=== PATIENT | male | born 1935 | race Hispanic/Latino ===

== ENCOUNTER 2017-04-23 13:08 | Emergency (ER) | payer MEDICARE ==
[2017-04-23 13:09] VITALS: BMI 22.7
[2017-04-23 13:17] VITALS: RESP 18; O2SAT 96
--- NOTE | 2017-04-23 14:07 | C.PDOC ---
History Of Present Illness 82-YEAR-OLD MALE, PRESENTS TO THE EMERGENCY DEPARTMENT WITH COMPLAINTS OF NEW ONSET RECTAL BLEED THAT STARTED YEST. NO RECUR SX TODAY. NO ABD OR RECTAL PAIN, NV, DIZZY. CURRENTLY ASYMPT EXAM NEG Time Seen by Provider: 04/23/17 13:41 Chief Complaint (Nursing): GI Problem History Per: Patient History/Exam Limitations: no limitations Current Symptoms Are (Timing): Better Number Of Bleeding Episodes: One Past Medical History Reviewed: Historical Data, Nursing Documentation, Vital Signs Vital Signs: Last Vital Signs Temp 99.2 F 04/23/17 13:13 Pulse 73 04/23/17 13:13 Resp 18 04/23/17 13:13 BP 147/92 H 04/23/17 13:13 Pulse Ox 96 04/23/17 14:53 - Medical History PMH: Benign Prostatic Hyperplasia, Hypercholesterolemia - [facility] Procedures COLONOSCOPY (09/30/12) ESOPHAGOGASTRODUODENOSCOPY [EGD] W/CLOSED BIOPSY (05/11/02) Family History: States: No Known Family Hx - Social History Hx Alcohol Use: No Hx Substance Use: No Review Of Systems Except As Marked, All Systems Reviewed And Found Negative. Constitutional: Negative for: Fever, Chills Cardiovascular: Negative for: Chest Pain, Palpitations Respiratory: Negative for: Shortness of Breath Gastrointestinal: Positive for: Hematochezia. Negative for: Nausea, Vomiting, Abdominal Pain Neurological: Negative for: Weakness, Numbness, Headache, Dizziness Physical Exam - Physical Exam Appears: Non-toxic, No Acute Distress Skin: Warm, Dry, No Rash Head: Atraumatic, Normacephalic Eye(s): bilateral: Normal Inspection, PERRL, EOMI Nose: Normal Oral Mucosa: Moist Lips: Normal Appearing Neck: Normal ROM Cardiovascular: Rhythm Regular, No Murmur Respiratory: Normal Breath Sounds, No Accessory Muscle Use Gastrointestinal/Abdominal: Soft, No Tenderness Back: Normal Inspection Extremity: Normal ROM Neurological/Psych: Oriented x3, Normal Speech ED Course And Treatment - Laboratory Results Result Diagrams: 04/23/17 14:34 04/23/17 14:34 ECG: Interpreted By Me ECG Rhythm: Sinus Rhythm ECG Interpretation: Normal Rate From EC O2 Sat by Pulse Oximetry: 96 (ON ra) Pulse Ox Interpretation: Normal Reevaluation Time: 16:14 Reassessment Condition: Improved (NO RECUR GI BLEED SINCE INITIAL EVAL. H/H WNL APPEARS COMFORTABLE.) Disposition Counseled Patient/Family Regarding: Studies Performed, Diagnosis, Need For Followup - Disposition Referrals: YOUR,PMD [Other] Disposition: HOME/ ROUTINE Disposition Time: 16:16 Condition: GOOD Additional Instructions: YOUR TESTS ARE NORMAL. RETURN IF WORSENING SYMPTOMS, FOLLOW UP WITH YOUR PMD. Instructions: Rectal Bleeding (ED) Forms: [facility] (Portuguese), General Discharge Instructions - Clinical Impression Clinical Impression: Rectal bleed - Scribe Statement The provider has reviewed the documentation as recorded by the Scribe (Jazmin Lara) All medical record entries made by the Scribe were at my direction and personally dictated by me. I have reviewed the chart and agree that the record accurately reflects my personal performance of the history, physical exam, medical decision making, and the department course for this patient. I have also personally directed, reviewed, and agree with the discharge instructions and disposition.
[2017-04-23 14:38] LABS: BASO % 0.6 % (0.0-2.0); EOS % 0.3 % (0.0-4.0); HEMOGLOBIN 14.3 g/dL (12.0-18.0); LYMPH # 1.9 K/uL (1.0-4.3); LYMPH % 29.1 % (20.0-40.0); MEAN CELL VOLUME 94.1 fL (80.0-94.0); MEAN CORPUSCULAR HEMOGLOBIN 32.5 pg (27.0-31.0); MEAN CORPUSCULAR HGB CONC 34.6 g/dL (33.0-37.0); MEAN PLATELET VOLUME 8.2 fL (7.2-11.7); MONO # 1.8 K/uL (0.0-0.8); MONO % 27.7 % (0.0-10.0); NEUT # 2.8 K/uL (1.8-7.0); NEUT % 42.3 % (50.0-75.0); PLATELET COUNT 168 K/uL (130-400); RBC 4.39 Mil/uL (4.40-5.90); RED CELL DISTRIBUTION WIDTH 12.9 % (11.5-14.5); WHITE BLOOD COUNT 6.6 K/uL (4.8-10.8)
[2017-04-23 14:54] LABS: INR 1.2; PROTHROMBIN TIME 13.9 SECONDS (9.7-12.2)
[2017-04-23 15:10] LABS: ALB/GLOB RATIO 1.2 (1.0-2.1); ALBUMIN 3.8 g/dL (3.5-5.0); ALT/SGPT 30 U/L (21-72); AST/SGOT 43 U/L (17-59); BLOOD UREA NITROGEN 13 mg/dL (9-20); CALCIUM 8.6 mg/dl (8.6-10.4); GFR AFRICAN-AMERICAN > 60; GFR NON-AFRICAN AMERICAN > 60
[2017-04-23 15:16] LABS: ANISOCYTOSIS SLIGHT; BANDS 3 % (0-2); LARGE PLATELETS PRESENT; LYMPHOCYTE 21 % (20-40); MONOCYTE 28 % (0-10); NEUTROPHIL 45 % (50-75); PLATELET ESTIMATE NORMAL (NORMAL); REACTIVE LYMPHOCYTES 3 % (0-0); TOTAL CELLS COUNTED 100
[2017-04-23 17:02] VITALS: BP 146/74; PULSE 72; TEMP 98.8
== END 2017-04-23 17:01 | disposition home or self-care (01) ==
LOC: C.ER 13:08
DX: K62.5 Hemorrhage of anus and rectum (principal)
CPT/HCPCS: 80053; 85025; 85610; 85730; 99284; G0328

== ENCOUNTER 2018-06-21 15:52 | Emergency (ER) | payer MEDICARE ==
[2018-06-21 15:52] VITALS: BMI 22.7
[2018-06-21 16:54] LABS: BASO % 0.3 % (0.0-2.0); EOS % 0.3 % (0.0-4.0); HEMOGLOBIN 15.3 g/dL (12.0-18.0); LYMPH % 35.3 % (20.0-40.0); MEAN CORPUSCULAR HEMOGLOBIN 32.4 pg (27.0-31.0); MEAN CORPUSCULAR HGB CONC 33.5 g/dL (33.0-37.0); MEAN PLATELET VOLUME 8.1 fL (7.2-11.7); MONO # 1.1 K/uL (0.0-0.8); MONO % 10.1 % (0.0-10.0); NEUT # 6.1 K/uL (1.8-7.0); NRBC % 0.1 % (0.0-2.0); RBC 4.73 Mil/uL (4.40-5.90); RED CELL DISTRIBUTION WIDTH 12.9 % (11.5-14.5)
[2018-06-21 17:02] LABS: MEAN CELL VOLUME 96.8 fL (80.0-94.0); WHITE BLOOD COUNT 11.3 K/uL (4.8-10.8)
[2018-06-21 17:08] LABS: URINE BACTERIA RARE (<OCC); URINE BILIRUBIN NEGATIVE (NEGATIVE); URINE BLOOD 2+ (NEGATIVE); URINE CLARITY Clear (Clear); URINE COLOR Yellow (YELLOW); URINE GLUCOSE (UA) NORMAL (Normal); URINE LEUKOCYTE ESTERASE NEG Leu/uL (Negative); URINE PROTEIN NEGATIVE (NEGATIVE); URINE UROBILINOGEN NORMAL mg/dL (0.2-1.0)
[2018-06-21 17:10] LABS: ALB/GLOB RATIO 1.5 (1.0-2.1); ALBUMIN 4.6 g/dL (3.5-5.0); ALT/SGPT 29 U/L (21-72); AST/SGOT 74 U/L (17-59); BLOOD UREA NITROGEN 11 mg/dL (9-20); CALCIUM 9.6 mg/dl (8.6-10.4); GFR NON-AFRICAN AMERICAN > 60
[2018-06-21] MEDS ORDERED: Sodium Chloride 0.9% 1,000 ML IV SCH (18:15)
[2018-06-21] MEDS ORDERED: Sodium Chloride 0.9% 1,000 ML ONE (18:20)
[2018-06-21] MEDS ORDERED: Iodixanol 320 MG/ML 100 ML BOTTLE IV ONE (18:42)
--- NOTE | 2018-06-21 18:48 | C.PDOC ---
History Of Present Illness 83 year old male presents to ED with complaint of vomiting and abdominal pain for the past 2-3 weeks. Patient states that he is not able to eat and that he has decreased appetite. He states that his last bowel movement was 2-3 days ago. Patient takes medication for his BPH and hyperlipidemia. Patient declined pain medication. She denies fever, chills, urinary symptoms, chest pain, SOB, dizziness, cough, and nausea. Time Seen by Provider: 06/21/18 17:48 Chief Complaint (Nursing): Abdominal Pain History Per: Patient History/Exam Limitations: no limitations Onset/Duration Of Symptoms: Other (2-3 weeks) Current Symptoms Are (Timing): Still Present Location Of Pain/Discomfort: RLQ, LLQ Radiation Of Pain To:: None Quality Of Discomfort: "Pain" Associated Symptoms: Vomiting, Loss Of Appetite. denies: Fever, Chills, Nausea, Urinary Symptoms Exacerbating Factors: None Alleviating Factors: None Last Bowel Movement: Days Ago (2-3) Past Medical History Reviewed: Historical Data, Nursing Documentation, Vital Signs Vital Signs: Last Vital Signs Temp 98.7 F 06/21/18 16:09 Pulse 69 06/21/18 16:09 Resp 20 06/21/18 16:09 BP 153/69 H 06/21/18 16:09 Pulse Ox 94 L 06/21/18 16:09 - Medical History PMH: Benign Prostatic Hyperplasia, Hypercholesterolemia Surgical History: No Surg Hx - [facility] Procedures COLONOSCOPY (09/30/12) ESOPHAGOGASTRODUODENOSCOPY [EGD] W/CLOSED BIOPSY (05/11/02) Family History: States: Unknown Family Hx - Social History Hx Alcohol Use: No Hx Substance Use: No Review Of Systems Constitutional: Negative for: Fever, Chills, Sweats, Weakness Cardiovascular: Negative for: Chest Pain Respiratory: Negative for: Cough, Shortness of Breath Gastrointestinal: Positive for: Vomiting, Abdominal Pain (lower abdomen). Negative for: Nausea, Constipation Genitourinary: Negative for: Dysuria, Frequency, Hematuria Neurological: Negative for: Weakness, Numbness, Dizziness Physical Exam - Physical Exam Appears: Well, Non-toxic, No Acute Distress Skin: Normal Color, Warm, Dry Head: Atraumatic, Normacephalic Eye(s): bilateral: Normal Inspection, PERRL, EOMI Oral Mucosa: Moist Neck: Normal ROM, Supple Chest: Symmetrical Cardiovascular: Rhythm Regular, No Murmur Respiratory: No Accessory Muscle Use, No Rales, No Rhonchi, No Wheezing Gastrointestinal/Abdominal: Tenderness (left lower quadrant), No Rebound Extremity: Capillary Refill (<2 seconds) Extremity: Bilateral: Atraumatic, Normal Color And Temperature, Normal ROM Pulses: Left Dorsalis Pedis: Normal, Right Dorsalis Pedis: Normal Neurological/Psych: Oriented x3, Normal Speech, Normal Cognition ED Course And Treatment - Laboratory Results Result Diagrams: 06/21/18 16:48 06/21/18 16:48 Lab Results: Total Bilirubin 1.0 mg/dL (0.2-1.3) 06/21/18 16:48 AST 74 U/L (17-59) H D 06/21/18 16:48 ALT 29 U/L (21-72) 06/21/18 16:48 Alkaline Phosphatase 67 U/L (38-126) 06/21/18 16:48 Total Protein 7.7 g/dL (6.3-8.3) 06/21/18 16:48 Albumin 4.6 g/dL (3.5-5.0) 06/21/18 16:48 Globulin 3.1 gm/dL (2.2-3.9) 06/21/18 16:48 Albumin/Globulin Ratio 1.5 (1.0-2.1) 06/21/18 16:48 Urine Color Yellow (YELLOW) 06/21/18 16:48 Urine Clarity Clear (Clear) 06/21/18 16:48 Urine pH 6.0 (5.0-8.0) 06/21/18 16:48 Ur Specific [place] 1.010 (1.003-1.030) 06/21/18 16:48 Urine Protein Negative mg/dL (NEGATIVE) 06/21/18 16:48 Urine Glucose (UA) Normal mg/dL (Normal) 06/21/18 16:48 Urine Ketones 1+ mg/dL (NEGATIVE) H 06/21/18 16:48 Urine Blood 2+ (NEGATIVE) H 06/21/18 16:48 Urine Nitrate Negative (NEGATIVE) 06/21/18 16:48 Urine Bilirubin Negative (NEGATIVE) 06/21/18 16:48 Urine Urobilinogen Normal mg/dL (0.2-1.0) 06/21/18 16:48 Ur Leukocyte Esterase Neg [place]/uL (Negative) 06/21/18 16:48 Urine WBC (Auto) 1 /hpf (0-5) 06/21/18 16:48 Urine RBC (Auto) 5 /hpf (0-3) H 06/21/18 16:48 Urine Bacteria Rare (<OCC) 06/21/18 16:48 O2 Sat by Pulse Oximetry: 94 (in RA) Medical Decision Making Medical Decision Making: Impression: 83 year old male with complaint of vomiting and lower abdominal pain Plan: Abdomen/Pelvis CT CMP CBC IV fluids UA Patient signed out to Dr. Prather pending CT and disposition Disposition - Disposition Disposition Time: 19:13 Condition: STABLE - Clinical Impression Clinical Impression: Vomiting, Abdominal pain - Scribe Statement The provider has reviewed the documentation as recorded by the Scribe (Sonali Jc) All medical record entries made by the Scribe were at my direction and personally dictated by me. I have reviewed the chart and agree that the record accurately reflects my personal performance of the history, physical exam, medical decision making, and the department course for this patient. I have also personally directed, reviewed, and agree with the discharge instructions and disposition.
[2018-06-21 20:53] VITALS: BP 144/75; PULSE 66; RESP 16; TEMP 98.3; O2SAT 96
--- NOTE | 2018-06-22 13:33 | CT ---
Date of service: 06/21/2018 PROCEDURE: CT Abdomen and Pelvis with contrast HISTORY: abd pain/vomiting COMPARISON: 10/14/2015 TECHNIQUE: Contrast dose: 100 cc of Visipaque Radiation dose: Total exam DLP = 461.77 mGy-cm. This CT exam was performed using one or more of the following dose reduction techniques: Automated exposure control, adjustment of the mA and/or kV according to patient size, and/or use of iterative reconstruction technique. FINDINGS: LOWER THORAX: Unremarkable. LIVER: Unremarkable. No gross lesion or ductal dilatation. GALLBLADDER AND BILE DUCTS: Unremarkable. PANCREAS: Unremarkable. No gross lesion or ductal dilatation. SPLEEN: Unremarkable. ADRENALS: Unremarkable. No mass. KIDNEYS AND URETERS: Unremarkable. No hydronephrosis. No solid mass. VASCULATURE: Unremarkable. No aortic aneurysm. No aortic atherosclerotic calcification or mural plaque present. BOWEL: Unremarkable. No obstruction. No gross mural thickening. APPENDIX: Normal appendix. PERITONEUM: Unremarkable. No free fluid. No free air. LYMPH NODES: Unremarkable. No enlarged lymph nodes. BLADDER: There is a small anterior bladder diverticulum. REPRODUCTIVE: Unremarkable. BONES: Degenerative changes are seen in the right hip joint. Degenerative changes in the lumbar spine. OTHER FINDINGS: The report concurs with the preliminary [facility] report IMPRESSION: No acute intra-abdominal findings
== END 2018-06-21 21:14 | disposition home or self-care (01) ==
LOC: C.ER 15:52
DX: R11.10 Vomiting, unspecified (principal); R10.32 Left lower quadrant pain
CPT/HCPCS: 74177; 80053; 81001; 85025; 96360; 96361; 99285; J7030; Q9967